=== PATIENT | male | born 1980 | race Caucasian/White ===

== ENCOUNTER → 2021-06-03 | Outpatient (CLI) | payer OTHER ==
[2016-02-19 23:10] VITALS: BP 138/87
--- NOTE | 2021-06-03 14:18 | KCIC ---
US TESTICULAR History: Reason: INTERMITTENT SCROTUM PAIN / Spl. Instructions: / History: Comparison: None. Technique: Multiple grayscale, color flow Doppler and Doppler spectral analysis images of the scrotum are obtained. Findings: Right testicle measures 3.8 x 2.7 x 2.3 cm. Right testicle demonstrates normal parenchymal echogenic ity. Right epididymal head cyst measures 0.5 x 2.5 x 0.67 m. Left testicle measures 3.9 x 2.6 x 2.1 cm. Left testicle demonstrates normal parenchymal echogenici ty. Left epididymis is unremarkable. Small bilateral hydroceles, left greater than right. No scrotal hyperemia or swelling. No varicocele. Doppler imaging demonstrates normal flow to both testicles, without evidence of torsion. IMPRESSION: 1. Small bilateral hydroceles. 2. Small right epididymal head cyst. Electronically signed by: Brian Cat DO (06/03/2021 2:16 PM) [id number]
== END ==
LOC: KCIC US 09:06
PROVIDERS: ATTEND Family Medicine
DX: N43.3 Hydrocele, unspecified (principal); N50.3 Cyst of epididymis; N50.82 Scrotal pain
CPT/HCPCS: 76870